=== PATIENT | male | born 1945 | race Caucasian/White ===

== ENCOUNTER 2025-08-12 19:58 | Emergency (ER) | payer MEDICARE, OTHER, SELFPAY ==
[2025-08-12] VITALS (13 sets, daily range): BP systolic 109–147; BP diastolic 59–107; BMI 21.9
[2025-08-12 20:21] LABS: Hematocrit 47.4 % (39.0-52.0); Hemoglobin 15.8 g/dL (13.0-18.0); Mean Corp Hgb Conc. 33.3 g/dL (33.0-37.0); Mean Corpuscular Volume 90.1 fL (80.0-94.0); Nucleated Red Blood Cells % 0 % (-); Platelet Count 299 10^3/uL (130-400); Red Cell Dist. Width 13.1 % (11.5-14.5)
[2025-08-12 20:23] LABS: Glucose - Point of Care 120 mg/dl (70-99)
--- NOTE | 2025-08-12 20:25 | ED.CVA ---
History of Present Illness
General
Chief Complaint: CVA/TIA Symptoms
Source: patient, family and ambulance crew
Exam Limitations: altered mental status
Time Seen by Provider: 08/12/25 20:01
Nursing documentation reviewed up to this point in time: agreed with
Onset of Stroke Symptoms
Onset of symptoms known: No
Date of onset of symptoms: 08/12/25
Time pt last seen normal is known: Yes
Date last time pt seen normal: 08/12/25
Time last time pt seen normal: 11:00
History of Present Illness
History of Present Illness:
80-year-old male with prior traumatic intracerebral hemorrhage
No longer on any meds except baby aspirin,
Normal at 11 AM son talked around 7 PM he was confused aphasic EMS was called found slumped over in a chair right sided plegia stroke alert was called is unclear if he could have fallen, apparently told someone he had a headache,
Discussed with son he is full code previous
GCS 12 E3,V3, M6
Phy Exam
Physical Exam
Physical Exam:
Physical Exam
General: Aphasic male no overt signs of head or neck trauma
Neck: No tongue bite
Heart: s1/s2 regular rate and rhythm, no murmur. equal radial pulses.
Lungs: no acute respiratory distress.
Abdomen: Nontender
Neuro: Follows simple commands opens eyes to voice aphasic right leg greater than right leg weakness
Skin: no rash
Extremities: no edema.
Course
Orders/Labs/Results
Orders:
Orders
08/12/25 20:01
CT HEAD STROKE ALERT W/o Cont Urgent
Comment:
Reason For Exam: aphaia right weakenss
Bedside Glucose- Treatment ONCE
08/12/25 20:13
Basic Metabolic Panel Urgent
Complete Blood Count/With Diff Urgent
PTT Urgent
Prothrombin Time Urgent
08/12/25 20:23
EKG [Electrocardiogram (*1)] Urgent
Reason for Study: TIA/Stroke
08/12/25 20:24
EKG- Treatment ONCE
08/12/25 20:31
CT Cervical Spine W/o Iv Contr Urgent
Comment:
Reason For Exam: ? fall
08/12/25 20:45
Nicardipine 40 mg/200 ml [Cardene] 40 mg in 200 ml IV PER PROTOCOL
Initial dose in mg/hr, then titrate:: 2.5
Titrate to keep:: SBP 120 - 140 mmHg
Titrate by mg/hr:: 2.5 mg/hr
Frequency of titrations (minutes):: 5-15 minutes
Maximum dose in mg/hr:: 15
Begin to taper infusion when:: Remained at goal for 2hrs
Taper by mg/hr:: 2.5 mg/hr
Frequency of taper (minutes) if patient maintains goal:: every 15-30 minutes
Taper to off?: Yes
If infusion off & no longer maintaining goal:: Contact Provider
Abnormal Lab Results
08/12/25 08/12/25
20:13 20:21
Abs Immat Gran (auto) 0.1 H 10^3/uL
(0-0.05)
Absolute Neuts (auto) 9.1 H 10^3/uL
(1.4-6.5)
Absolute Lymphs (auto) 0.8 L 10^3/uL
(1.2-3.4)
Neutrophils % 87.0 H %
(42.2-75.2)
Lymphocytes % 7.8 L %
(20.5-51.1)
Chloride 108 H mmol/L
(98-107)
BUN 31 H mg/dl
(9-20)
Glucose 133 H mg/dl
(70-99)
POC Glucose 120 H mg/dl
(70-99)
10/30/25 20:13
08/12/25 20:13
Vital Signs
Initial and Last Documented VS:
Initial Vital Signs
Temp Pulse Resp BP Pulse Ox
98.5 F 68 15 123/107 98
08/12/25 20:00 08/12/25 20:00 08/12/25 20:00 08/12/25 20:00 08/12/25 20:00
Last Documented Vital Signs
Temp Pulse Resp BP Pulse Ox
98.5 F 76 15 129/64 95
08/12/25 20:00 08/12/25 20:45 08/12/25 20:45 08/12/25 21:10 08/12/25 20:45
MDM/Problems Addressed
Differential Diagnosis Includes:
Stroke intracerebral hemorrhage subdural seizure with Naeem's paralysis
MDM/Problems Addressed:
Strokelike symptom
Chronic conditions affecting care:
Prior hemorrhage
Chronic conditions affecting care: Neurological disorder
Acute Exacerbation and/or Progression of Chronic Illness: Neurological disorder
*Radiology
Radiology exam reviewed: radiology read reviewed
*Pulse Oximetry
SaO2: 99
Oxygen Mode of Delivery: Room air
Patient hypoxic: no
*EKG
Interpreted by ED Provider?: Yes
Interpretation: normal
Comparison EKG: no comparison EKG present
Heart Rate: 78
Rate: normal
Rhythm: sinus
Ischemia: no ischemia
*Wire Border Assembler Interpretation
Rate: normal
Interpretation: normal
Rhythm: sinus
*Critical Care Note
Total Time (30-74mins, 75-104mins- exclusive of procedures): 32
Update Note
Update Note:
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
No overt signs of trauma, will check CT cervical spine family updated call placed to [facility] neurosurgery
ED Attending Note
-
Portions of this chart may have been created with voice recognition software.� Occasional wrong word or��sound alike� substitutions may have occurred due to the inherent limitations of voice recognition software.
Discharge Plan
Departure
Patient Disposition: Acute Care Hospital
Date of Disposition: 08/12/25
Time of Disposition: 20:38
Patient with high blood pressure during this ER visit?: Yes
Condition: Critical
Covid-19: Not Applicable
Discharge Problem:
Acute intracerebral hemorrhage
Hospital Transfer
Other hospital: [facility]
I certify that the patient requires transfer: Yes
Discussed case with accepting physician: Neurosurgery/Neurology
Reason for transfer: higher level of care
Interventions
Interventions:
*Risk Screen - Suicide Last Done: 08/12/25 20:22
*General Assessment Last Done: 08/12/25 20:35
*Neglect/Abuse Screening Last Done: 08/12/25 20:37
*ED- Fall Risk Assessment Last Done: 08/12/25 20:30
*ED COVID-19 Vaccine History Last Done: 08/12/25 20:20
*ED Influenza Vaccine History Last Done: 08/12/25 20:20
ED- Pulmonary Assessment Last Done: 08/12/25 20:21
ED- Neurological Assessment Last Done: 08/12/25 20:40
ED- Cardiac Assessment Last Done: 08/12/25 20:20
ED Swallowing Screen Last Done: 08/12/25 21:07
Discharge Date and Time
Print Language: DANISH
[2025-08-12 20:32] LABS: APTT 27.1 Sec (23.4-35.0); INR 1.04; PT 14.1 Sec (11.4-14.6)
--- NOTE | 2025-08-12 20:37 | EDRN ---
per Rodger, stroke alert is completed.
[2025-08-12 20:38] LABS: Blood Urea Nitrogen 31 mg/dl (9-20); Calcium 9.5 mg/dl (8.4-10.2); Carbon Dioxide 22 mmol/L (22-30); Chloride 108 mmol/L (98-107); Estimated Creatinine Clearance 51 ml/min; Glucose 133 mg/dl (70-99); Sodium 139 mmol/L (135-145); eGFR > 60.00
[2025-08-12] MEDS: CARDENE 200 IV (20:59)
[2025-08-12] MEDS: OFIRMEV 100 IV (21:34)
== END 2025-08-12 21:59 | disposition short-term general hospital (02) ==
LOC: EMR 19:58
PROVIDERS: EMERGENCY PHYSICIAN Emergency Medicine; FAMILY PHYSICIAN Family Medicine
DX: I61.9 Nontraumatic intracerebral hemorrhage, unspecified (principal); R29.90 Unspecified symptoms and signs involving the nervous system
CPT/HCPCS: 99291; 96365; 96375; 70450; 72125; 80048; 82962; 85025; 85610; 85730; 93005